=== PATIENT | male | born 1980 | race Two or more races ===

== ENCOUNTER 2016-12-22 23:26 | Emergency (ER) | payer SELFPAY ==
[~2016-12-22] VITALS: Ht 172.7 cm; Wt 99.8 kg
[2016-12-22] MEDS ORDERED: NKM (23:38)
--- NOTE | 2016-12-22 23:41 | Emergency Room Report ---
History of Present Illness General Chief Complaint: Chest Pain Source: Patient Present Illness HPI Is a 36-year-old male with no past medical history. He presents with chief complaint of chest pain. Onset for last 3 days. Nausea vomiting once. Denies any fever or chills. [place] numbness to his body. He called 911 today but his mind transfer because of lack of funds. Was concerned because of numbness to his left side of his body. No fever chills but no diarrhea. Pain is 8/10. Sharp in both chest area. Allergies: Coded Allergies: No Known Allergies (Unverified , 12/22/16) Patient History Past Medical History: see triage record, old chart reviewed Past Surgical History: none Pertinent Family History: none Social History: Reports: smoking, alcohol use, Denies: drug use Immunizations: other Reviewed Nursing Documentation: PMH: Agreed, PSxH: Agreed Nursing Documentation-PM Past Medical History: No Stated History Review of Systems Eye: Denies: eye pain, blurred vision ENT: Denies: ear pain, nose congestion, throat swelling Respiratory: Denies: cough, shortness of breath Cardiovascular: Reports: chest pain, Denies: palpitations Gastrointestinal: Reports: nausea, vomiting, Denies: abdominal pain, diarrhea Musculoskeletal: Denies: back pain, joint pain Skin: Denies: rash Neurological: Denies: headache, numbness Endocrine: Denies: increased thirst, increased urine Hematologic/Lymphatic: Denies: easy bruising All Other Systems: negative except mentioned in HPI Physical Exam Vital Signs Date Time Temp Pulse Resp B/P (MAP) Pulse Ox O2 Delivery O2 Flow Rate FiO2 12/22/16 23:35 99.3 80 22 148/80 96 Room Air vitals normal Sp02 EP Interpretation: reviewed, normal General Appearance: well appearing, no apparent distress, alert Head: normocephalic, atraumatic Eyes: bilateral eye PERRL, bilateral eye EOMI ENT: hearing grossly normal, normal pharynx Neck: full range of motion, supple, no meningismus Respiratory: chest non-tender, lungs clear, normal breath sounds Cardiovascular #1: regular rate, rhythm, no murmur Gastrointestinal: normal bowel sounds, non tender, no mass, no organomegaly, no bruit, non-distended Musculoskeletal: back normal, gait/station normal, normal range of motion Psychiatric: anxious Skin: warm/dry Medical Decision Making Diagnostic Impression: Primary Impression: Chest pain Qualified Codes: R07.9 - Chest pain, unspecified Additional Impression: Cholelithiasis Qualified Codes: K80.80 - Other cholelithiasis without obstruction ER Course She presents with atypical chest pain. Most likely secondary to biliary colic. He is pain-free now. I did a bedside ultrasound which showed gallbladder with sludge. Normal gallbladder wall. Negative Bradford sign. He also has anxiety component to this. Blood pressure improved. We'll discharge him. Lab Results Impression labs with elevated LFTs EKG Diagnostic Results Rate: normal Rhythm: NSR ST Segments: no acute changes Rhythm Strip Diag. Results EP Interpretation: yes Rate: 73 Rhythm: NSR, no PVC's, no ectopy Chest X-Ray Diagnostic Results Chest X-Ray Diagnostic Results : Chest X-Ray Ordered: Yes # of Views/Limited/Complete: 1 View Indication: Chest Pain EP Interpretation: Yes Interpretation: no consolidation, no effusion, no pneumothorax, no acute cardiopulmonary disease Impression: No acute disease Electronically Signed by: Electronically signed by Rodríguez Pruitt MD Last Vital Signs Date Time Temp Pulse Resp B/P (MAP) Pulse Ox O2 Delivery O2 Flow Rate FiO2 12/22/16 23:35 99.3 80 22 148/80 96 Room Air Status: improved Disposition: HOME, SELF-CARE Condition: Stable Scripts Hydrocodone/Acetaminophen 5-325* (HYDROCODONE/ACETAMINOPHEN 5-325*) 1 Each Tablet 1 TAB ORAL Q6H Y for For Pain, #20 TAB 0 Refills Prov: RODRÍGUEZ PRUITT M.D. 12/23/16 Patient Instructions: Nonspecific Chest Pain Additional Instructions: Followup with your DrCristina in 2-3 days. Return if symptom worsen. RODRÍGUEZ PRUITT M.D. Dec 22, 2016 23:41
[2016-12-22] MEDS ORDERED: Mylanta II UD 30ml ORAL ONE (23:45)
[2016-12-23 00:06] LABS: BASOPHILS % (AUTO) 1.7 % (0.0-2.0); EOSINOPHILS % (AUTO) 4.1 % (0.0-3.0); LYMPHOCYTES % (AUTO) 31.3 % (20.0-45.0); MEAN CORPUSCULAR HEMOGLOBIN 30.3 PG (27.0-31.0); MEAN CORPUSCULAR VOLUME 89 FL (80-99); MEAN PLATELET VOLUME 6.3 FL (6.5-10.1); MONOCYTES % (AUTO) 8.9 % (1.0-10.0); PLATELET COUNT 262 K/UL (150-450); RED BLOOD COUNT 6.09 M/UL (4.70-6.10); RED CELL DISTRIBUTION WIDTH 11.5 % (11.6-14.8); WHITE BLOOD COUNT 6.2 K/UL (4.8-10.8)
[2016-12-23 00:13] LABS: APPEARANCE,URINE CLEAR; KETONES,URINE NEGATIVE (NEGATIVE); LEUKOCYTE ESTERASE ,URINE NEGATIVE (NEGATIVE); NITRITE,URINE NEGATIVE (NEGATIVE); PH,URINE 6 (4.5-8.0); PROTEIN,URINE NEGATIVE (NEGATIVE); UROBILINOGEN,URINE NORMAL MG/DL (0.0-1.0)
[2016-12-23 00:20] LABS: ALANINE AMINOTRANSFERASE 152 U/L (3-41); ALBUMIN/GLOBULIN RATIO 1.3 (1.0-2.7); ANION GAP 13 (5-15); ASPARTATE AMINO TRANSFERASE 82 U/L (5-40); CARBON DIOXIDE 23 mEQ/L (20-30); CHLORIDE 100 mEQ/L (98-107); GLOMERULAR FILTRATION RATE > 60 mL/min (>60); HEMOLYSIS 11; POTASSIUM 3.7 mEQ/L (3.4-4.9); SODIUM 136 mEQ/L (135-145); TOTAL PROTEIN 7.5 g/dL (6.6-8.7); TROPONIN I < 0.30 ng/mL (<=0.30)
[2016-12-23 00:30] LABS: CKMB < 1.5 ng/mL (< 6.7)
[2016-12-23 00:50] VITALS: BP 118/71
[2016-12-23] MEDS ORDERED: HYDROCODON-ACE1 EA15 ORAL (00:59)
[2016-12-23 01:06] VITALS: BP 118/71
--- NOTE | 2016-12-23 10:09 | Diagnostic Imaging Report ---
Indication: Chest pain Technique: One view of the chest Comparison: none Findings: Lungs and pleural spaces are clear. Heart size is normal Impression: No acute process
--- NOTE | 2016-12-25 14:45 | Cardiology Report ---
APPROVED REPORT EKG Measurement Heart [id number] Normal sinus rhythm Normal ECG
== END 2016-12-23 01:07 | disposition home or self-care (01) ==
LOC: EMR 23:50
DX: R07.89 Other chest pain (principal); K80.20 Calculus of gallbladder without cholecystitis without obstruction
CPT/HCPCS: 36415; 71010; 80053; 80300; 81003; 82550; 82553; 84484; 85025; 93005; 99284